=== PATIENT | female | born 1925 | race Caucasian/White ===

== ENCOUNTER 2016-04-24 22:45 | Inpatient (IN) | payer BC ==
[~2016-04-24] VITALS: Ht 152.4 cm; Wt 70.3 kg
[2016-04-24 22:45] VITALS: BP 106/51; PULSE 98; RESP 20; TEMP 97.8; O2SAT 91
[~2016-04-24 22:45] MED LIST: ASPI325T2 PO; CALC600T20 PO; CHOL100038 PO; CITA10TA9 PO; CLOP75TA2 PO; CYAN250010 PO; LIP10 PO; LOSA25TA11 PO; LOVA10TA55 PO; METF-795 PO
--- NOTE | 2016-04-24 22:45 | NUR ---
BROUGHT IN BY AMIE MACDONALD, TRIAGED, REPORT GIVEN TO DEEDEE
--- NOTE | 2016-04-24 22:50 | NUR ---
Patient awake and alert, sitting in bed, c/o flu like symptoms x 3 days, patient c/o cough and nasal congestion with nausea, patient afebrile, no acute distress noted O2 92% on RA. Vital signs stable. no acute distress noted, patient actively coughing and c/o weakness and inability to stand due to weakness. MD aware will continue to monitor.
--- NOTE | 2016-04-24 23:00 | NUR ---
ER at bedside examining patient.
[2016-04-24] MEDS ORDERED: NACL 0.9% 1,000 ML IV ONE (23:07)
[2016-04-24 23:39] LABS: BASOPHILS % (AUTO) 0.2 % (0.0-2.0); EOSINOPHILS # (AUTO) 0.1 K/uL (0.0-0.4); EOSINOPHILS % (AUTO) 0.5 % (0.0-4.0); HEMATOCRIT 35.1 % (36-48); HEMOGLOBIN 12.2 g/dL (12.0-16.0); LYMPHOCYTES # (AUTO) 0.9 K/uL (1.0-5.5); LYMPHOCYTES % (AUTO) 8.1 % (20.5-51.5); MEAN CORPUSCULAR HEMOGLOBIN 31 pg (27-31); MEAN CORPUSCULAR HGB CONC 35 % (32-36); MEAN CORPUSCULAR VOLUME 89 fL (79.0-98.0); MONOCYTES # (AUTO) 0.9 K/uL (0.0-1.0); NEUTROPHILS # (AUTO) 9.3 K/uL (1.8-7.7); NEUTROPHILS % (AUTO) 83.2 % (40.0-70.0); PLATELET COUNT (AUTO) 174 K/uL (130-430); RED BLOOD CELL COUNT(AUTO) 3.93 MIL/uL (4.2-6.2); RED CELL DISTRIBUTION WIDTH 13.9 % (9.0-15.0); WHITE BLOOD COUNT (AUTO) 11.2 K/uL (4.8-10.8)
[2016-04-24 23:40] LABS: ANION GAP 8 (5-15); CALCIUM 9.5 mg/dL (8.4-11.0); CHLORIDE 101 mmol/L (98-107); CREATININE 0.91 mg/dL (0.55-1.30); GLUCOSE 145 mg/dL (70-99); POTASSIUM 4.2 mmol/L (3.5-5.1); SODIUM SERUM 136 mmol/L (136-145); UREA NITROGEN, BLOOD 11 mg/dL (8-21)
--- NOTE | 2016-04-24 23:40 | NUR ---
Patient placed on O2 at 2 L via NC. O2 sat increased from 91%to 96%. Patient tolerated well. Md aware, will continue to monitor.
[2016-04-24 23:45] LABS: ALANINE AMINOTRANSFERASE 31 U/L (12-78); ALBUMIN 3.7 g/dL (3.4-4.8); ASPARTATE AMINOTRANSFERASE 24 U/L (10-37); TOTAL BILIRUBIN 0.5 mg/dL (0.0-1.0); TOTAL PROTEIN, SERUM 7.6 g/dL (6.4-8.3)
[2016-04-24 23:53] LABS: ABG TOTAL HEMOGLOBIN 12.6 G/dL (12.0-18.0); BLOOD GAS BASE EXCESS 0.9 mmol/L (-3.0-3.0); BLOOD GAS COHb% 0.6 % (0.5-1.5); BLOOD GAS HHB 12.9 % (0.0-6.0); BLOOD GAS PH 7.426 (7.350-7.450); BLOOD O2Hb% 85.9 % (94.0-97.0)
[2016-04-25] VITALS (7 sets, daily range): BP systolic 105–115; BP diastolic 45–55; PULSE 61–77; RESP 15–20; TEMP 97.3–98.2; O2SAT 95–98
--- NOTE | 2016-04-25 00:30 | NUR ---
Patient resting in bed no acute distress noted. will continue to monitor.
[2016-04-25 00:56] LABS: BILIRUBIN,URINE NEGATIVE (NEGATIVE); BLOOD, URINE 1+ (NEGATIVE); COLOR,URINE YELLOW (YELLOW); GLUCOSE,URINE NEGATIVE (NEGATIVE); KETONES,URINE NEGATIVE (NEGATIVE); LEUKOCYTE ESTERASE ,URINE 2+ (NEGATIVE); NITRITE, URINE NEGATIVE (NEGATIVE); PROTEIN URINE NEGATIVE (NEGATIVE); UROBILINOGEN,URINE 0.2 (0.2-1.0)
[2016-04-25] MEDS ORDERED: ONDANSETRON HCL 4 MG/2 ML VIAL IVP PRN (01:00)
[2016-04-25] MEDS ORDERED: ALBUTEROL SULFATE 0.083% 2.5 MG/3 ML VIAL.NEB INH PRN (01:00)
[2016-04-25] MEDS ORDERED: ACETAMINOPHEN 325 MG TABLET PO PRN (01:00)
[2016-04-25 01:09] LABS: CLARITY/URINE SLIGHTLY HAZY (CLEAR)
[2016-04-25 01:13] LABS: BACTERIA,URINE FEW /HPF (None Seen); MUCUS,URINE None Seen /LPF (None Seen); RBC,URINE 0-3 /HPF (0-3)
--- NOTE | 2016-04-25 01:26 | NUR ---
Patient will be admitted to care of Dr. Mariscal. Admitted to Tele unit. Will go to room 116B. Belongings list completed. Summary report printed. Report given to JEFFREY.
--- NOTE | 2016-04-25 01:26 | NUR ---
Transfer to Tele via ACLS protocol. Licensed nurse present. IV present no signs or symptoms of infiltration.
--- NOTE | 2016-04-25 01:27 | NUR ---
ADMISSION NOTE Received patient from ER via gurney. Patient admitted with diagnosis of PNA. Patient is awake, alert, oriented X 4. Patient oriented to hospital room, call light, toileting, pain management and safety-teach back done. Patient informed that DANISH RN will be her nurse and that their room number is 116B. Personal belongings checked and Belongings List documented. Call light within reach.
--- NOTE | 2016-04-25 01:30 | NUR ---
Initial Notes Received patient from ER via mignon. Patient on droplet precaution for positive influenza. Patient awake, alert, oriented. Patient denies any acute distress or pain at this time. IV site to right AC #20, NS fluids given in ER. Educated patient on use of call light for assistance and fall precautions, patient verbalized understanding. Needs addressed. Will continue to monitor.
--- NOTE | 2016-04-25 02:53 | NUR ---
New IV access started IV access started right forearm #22, good blood return noted, patent/clean/dry, no S/S infection/infiltration noted. Patient tolerated well.
--- NOTE | 2016-04-25 04:09 | NUR ---
Rounds Patient resting in bed with eyes closed, easily aroused. Patient denies any acute distress or pain at this time. Needs addressed, call light in hand. Will continue to monitor.
--- NOTE | 2016-04-25 06:29 | NUR ---
Closing Notes Patient resting in bed with eyes closed, easily aroused. Patient denies any acute distress or pain. Breathing even and unlabored. IV site patent/clean/dry. Needs addressed throughout shift. Call light in hand, fall precautions in place. Will continue to monitor for changes and safety, and endorse all patient care/needs to oncoming nurse. Patient remains on droplet precautions for positive influenza.
--- NOTE | 2016-04-25 08:20 | NUR ---
Pt in room in bed awake @ this time pt has no c/o pain or discomfort @this time nurse continue to monitor pt for safety & comfort
[2016-04-25] MEDS: ASPIRIN 81 MG TAB.CHEW PO SCH (09:19)
[2016-04-25] MEDS: ENOXAPARIN SODIUM 30 MG/0.3 ML SYRINGE SUBCUT SCH (09:19)
[2016-04-25] MEDS: OSELTAMIVIR PHOSPHATE 75 MG CAPSULE PO SCH ×2 (09:19→20:55)
[2016-04-25] MEDS: CLOPIDOGREL BISULFATE 75 MG TABLET PO SCH (09:20)
[2016-04-25] MEDS: ATORVASTATIN 10 MG TABLET PO SCH (09:20)
[2016-04-25] MEDS: LOSARTAN POTASSIUM 25 MG TABLET PO SCH (09:22)
--- NOTE | 2016-04-25 09:35 | NUR ---
Nutrition Update Loc Scale 17 noted. Pt admitted for pneumonia. Diet: 2 gm Na BMI: 30.3 kg/m2 RD to follow per nutrition care standards.
--- NOTE | 2016-04-25 10:43 | NUR ---
Pt in room in be resting @ this time pt has no c/o any discomfort @ this time pt reposition @ this time for comfort nurse continue to monitor pt
[2016-04-25] MEDS ORDERED: cefTRIAXone 1 GM IVPB PREMIX 50 ML IV ONE (11:00)
--- NOTE | 2016-04-25 11:33 | NUR ---
CALLED PULMONOLOGY CONSULT TO JOSE F, RE: INFLUENZA. SPOKE TO LG
--- NOTE | 2016-04-25 12:00 | NUR ---
Pt in room in bed resting @ this time pt has no c/o any pain or discomfort @ this time nurse continue to monitor pt for comfort call light in reaching @ this time
--- NOTE | 2016-04-25 14:30 | NUR ---
Pt awake @ this time pt teaching done this shift on disease process treatments & plan of care pt verbalize understanding pt encourage to ask question as needed
--- NOTE | 2016-04-25 16:20 | NUR ---
pt awake @ this time interacting with her son pt denies any pain or discomfort @ this time nurse continue to monitor pt
--- NOTE | 2016-04-25 18:15 | NUR ---
Pt resting in bed @ this time no complaints or concerns @ this time nurse continue to monitor pt
--- NOTE | 2016-04-25 20:00 | NUR ---
NOTES; Pt is in bed, A/A/O X4, no acute distress noted. Vital signs stable, afebrile. Patient on droplet precaution for positive influenza. Pt denies any SOB . IV site to right AC, patent. No signs of infection noted on iv site. None productive cough noted. Educated patient on use of call light for assistance and fall precautions, Pt verbalized understanding. Needs addressed. Will continue to monitor.
--- NOTE | 2016-04-25 21:00 | NUR ---
NOTES; SCHEDULED PO MEDICATION ADMINISTERED. PT TOLERATED MEDS WELL.
--- NOTE | 2016-04-25 23:00 | NUR ---
NOTES; RESTING QUIETLY IN BED. NO ACUTE DISTRESS NOTED. SAFETY MEASURES IN PROGRESS. WILL CONTINUE TO MONITOR.
[2016-04-26] VITALS: BP 109/47; PULSE 67; RESP 17; TEMP 99.4; O2SAT 97
[2016-04-26] MEDS: IPRATROPIUM/ALBUTEROL SULFATE 3 ML AMPUL.NEB INH SCH ×4 (01:00→13:00)
--- NOTE | 2016-04-26 01:00 | NUR ---
NOTES; PT APPEARED TO BE SLEEPING, EYES CLOSED. RESPIRATION EVEN AND UNLABORED. SAFETY MEASURES IN PROGRESS. WILL CONTINUE TO MONITOR.
--- NOTE | 2016-04-26 03:13 | NUR ---
NOTES; PT APPEARED TO BE SLEEPING, EYES CLOSED. RESPIRATION EVEN AND UNLABORED. SAFETY MEASURES IN PROGRESS. WILL CONTINUE TO MONITOR.
[2016-04-26 04:00] VITALS: BP 103/49; PULSE 74; RESP 18; TEMP 98.5; O2SAT 96
--- NOTE | 2016-04-26 05:00 | NUR ---
NOTES; PT APPEARED TO BE SLEEPING, EYES CLOSED. RESPIRATION EVEN AND UNLABORED. SAFETY MEASURES IN PROGRESS. WILL CONTINUE TO MONITOR.
--- NOTE | 2016-04-26 06:35 | NUR ---
NOTES; AWAKE, IN BED. EDUCATED PT ON THE USE OF IS. PT DEMONSTRATED UP TO 1000cc. ENCOURAGED PT TO USE IS X10/HR WHILE AWAKE. PT VERBALIZED UNDERSTANDING.
[2016-04-26 06:42] LABS: BASOPHILS % (AUTO) 0.6 % (0.0-2.0); EOSINOPHILS # (AUTO) 0.1 K/uL (0.0-0.4); EOSINOPHILS % (AUTO) 1.8 % (0.0-4.0); LYMPHOCYTES # (AUTO) 1.6 K/uL (1.0-5.5); LYMPHOCYTES % (AUTO) 23.1 % (20.5-51.5); MEAN CORPUSCULAR HEMOGLOBIN 30 pg (27-31); MEAN CORPUSCULAR HGB CONC 33 % (32-36); MEAN CORPUSCULAR VOLUME 90 fL (79.0-98.0); MONOCYTES % (AUTO) 13.7 % (1.7-9.3); NEUTROPHILS # (AUTO) 4.4 K/uL (1.8-7.7); NEUTROPHILS % (AUTO) 60.8 % (40.0-70.0); PLATELET COUNT (AUTO) 141 K/uL (130-430); RED BLOOD CELL COUNT(AUTO) 3.65 MIL/uL (4.2-6.2); RED CELL DISTRIBUTION WIDTH 14.1 % (9.0-15.0); WHITE BLOOD COUNT (AUTO) 7.1 K/uL (4.8-10.8)
[2016-04-26 06:48] LABS: ALANINE AMINOTRANSFERASE 28 U/L (12-78); ANION GAP 4 (5-15); ASPARTATE AMINOTRANSFERASE 23 U/L (10-37); CALCIUM 8.8 mg/dL (8.4-11.0); CHLORIDE 103 mmol/L (98-107); CREATININE 0.74 mg/dL (0.55-1.30); GLUCOSE 123 mg/dL (70-99); PHOSPHORUS 3.4 mg/dL (2.7-4.5); POTASSIUM 4.1 mmol/L (3.5-5.1); SODIUM SERUM 137 mmol/L (136-145); TOTAL BILIRUBIN 0.2 mg/dL (0.0-1.0); TOTAL PROTEIN, SERUM 6.8 g/dL (6.4-8.3); UREA NITROGEN, BLOOD 11 mg/dL (8-21)
[2016-04-26 08:00] VITALS: BP 112/51; PULSE 74; RESP 18; TEMP 97; O2SAT 96
--- NOTE | 2016-04-26 08:00 | NUR ---
Initial Note Patient A/O x4. Respirations even and unlabored. IV access patent. Isolation precautions in place. Educated patient on droplet precautions. Reviewed use of call light. Encouraged patient to call for assistance. Fall and safety precautions in place.
[2016-04-26 08:32] LABS: ABG TOTAL HEMOGLOBIN 13.1 G/dL (12.0-18.0); BLOOD GAS BASE EXCESS 0.5 mmol/L (-3.0-3.0); BLOOD GAS COHb% 0.2 % (0.5-1.5); BLOOD GAS HHB 5.5 % (0.0-6.0); BLOOD GAS PH 7.423 (7.350-7.450); BLOOD O2Hb% 93.8 % (94.0-97.0)
[2016-04-26] MEDS ORDERED: cefTRIAXone 1 GM IVPB PREMIX 50 ML IV SCH (09:00)
[2016-04-26] MEDS: LOSARTAN POTASSIUM 25 MG TABLET PO SCH (09:46)
[2016-04-26] MEDS: CLOPIDOGREL BISULFATE 75 MG TABLET PO SCH (09:46)
[2016-04-26] MEDS: OSELTAMIVIR PHOSPHATE 75 MG CAPSULE PO SCH (09:46)
[2016-04-26] MEDS: ATORVASTATIN 10 MG TABLET PO SCH (09:46)
[2016-04-26] MEDS: ASPIRIN 81 MG TAB.CHEW PO SCH (09:46)
[2016-04-26] MEDS: ENOXAPARIN SODIUM 30 MG/0.3 ML SYRINGE SUBCUT SCH (09:47)
--- NOTE | 2016-04-26 12:40 | NUR ---
Notes Patient sitting upright having lunch. No difficulty eating independently. No aspiration noted.
[2016-04-26 12:42] VITALS: BP 113/48; PULSE 64; RESP 17; TEMP 99; O2SAT 96
--- NOTE | 2016-04-26 14:00 | NUR ---
Notes Dr. Flores has been paged to inform family is at bedside, stating they spoke with Dr. Flores and are ready to take patient home if she is being discharged today.
[2016-04-26 17:03] VITALS: BP 109/92; PULSE 58; RESP 16; TEMP 97.8; O2SAT 94
--- NOTE | 2016-04-26 17:25 | NUR ---
D/C Patient Patient given medication reconciliation form and D/C instructions. Exit Care provided. Patient verbalized understanding. MD discussed with patient the results and treatment provided. Ambulatory with steady gait for discharge to home. Patient in stable condition, ID band removed. IV catheter removed, intact and dressing applied, no active bleeding. Rx of levaquin and tamiflu given. Patient educated on pain management and follow up care. All belongings sent with patient.
--- NOTE | 2016-04-30 13:45 | NUR ---
Discharge Follow Up Phone Call [facility] phoned patient, . Patient stated she was still feeling weak. She is resting and her family is helping her. She lives with her daughter. Patient has not made her follow up appointment as she is no longer driving and is awaiting her family's schedule. She did not want [facility]'s assistance in making the appointment but agreed to call no later than tomorrow for an appointment. Patient filled her prescriptions and is taking them as directed. Patient has not used her blood glucose monitor since returning from the hospital. She stated her sugar usually stays stable but agreed to check it today. Patient has no questions or concerns. No further follow up calls requested.
== END 2016-04-26 17:25 | disposition home or self-care (01) | DRG 193 ==
LOC: SED 22:45 → STU 04-25 00:47 → SMU 04-26 08:38
DX: J09.X2 Influenza due to identified novel influenza A virus with other respiratory manifestations (principal); J96.01 Acute respiratory failure with hypoxia; N39.0 Urinary tract infection, site not specified; I10 Essential (primary) hypertension; E11.9 Type 2 diabetes mellitus without complications; E78.5 Hyperlipidemia, unspecified; J20.9 Acute bronchitis, unspecified; Z86.73 Personal history of transient ischemic attack (TIA), and cerebral infarction without residual deficits
CPT/HCPCS: 36415; 36600; 71010; 80053; 81000-TC; 82803-TC; 83605; 83735-TC; 84100-TC; 85025; 86710; 87040-TC; 87086; 93005; 94010; 96360; 96361; 99285; G9035; J0696; J1650; J7030; J7050